=== PATIENT | female | born 1950 | race Two or more races ===

== ENCOUNTER → 2024-06-11 12:33 | Outpatient (REF) | payer MEDICARE, BC, SELFPAY | LOC: RAD 12:33 | PROVIDERS: ATTENDING PHYSICIAN Physician Assistant Medical | DX: Z78.0 Asymptomatic menopausal state (principal) | CPT/HCPCS: 77080 ==

== ENCOUNTER → 2025-03-18 08:33 | Outpatient (REF) | payer MEDICARE, BC, SELFPAY | LOC: RAD 08:33 | PROVIDERS: ATTENDING PHYSICIAN Physician Assistant Medical | DX: M25.561 Pain in right knee (principal) | CPT/HCPCS: 73564 ==

== ENCOUNTER → 2025-04-30 06:57 | Outpatient (REF) | payer MEDICARE, BC, SELFPAY | LOC: MRI 3T 06:57 | PROVIDERS: ATTENDING PHYSICIAN Physician Assistant Medical | DX: M25.561 Pain in right knee (principal); M25.30 Other instability, unspecified joint | CPT/HCPCS: 73721 ==